=== PATIENT | male | born 1985 | race African-American/Black ===

== ENCOUNTER 2017-10-23 03:20 | Emergency (ER) | payer MEDICAID ==
[~2017-10-23] VITALS: Ht 180.3 cm; Wt 72.6 kg
[2017-10-23] MEDS ORDERED: ALBUTEROL SULF 2.5 MG/0.5ML(0.5%) NEB SOLN HHN ONE (03:30)
[2017-10-23] MEDS ORDERED: IPRATROPIUM BROM 0.5 MG/2.5ML INH SOL HHN ONE (03:30)
[2017-10-23 04:30] VITALS: BP 157/81
[2017-10-23] MEDS ORDERED: methylPREDNISolone SOD SUCC 125 MG/2 ML VL IM ONE (04:30)
== END 2017-10-23 04:38 | disposition home or self-care (01) ==
LOC: ER 03:23
DX: J45.901 Unspecified asthma with (acute) exacerbation (principal); Z76.0 Encounter for issue of repeat prescription
CPT/HCPCS: 94640; 96372; 99283; J2930